=== PATIENT | male | born 1995 ===

== ENCOUNTER 2017-05-18 12:46 | Day surgery (SDC) | payer BC ==
--- NOTE | 2017-05-14 23:34 | HP ---
PREOPERATIVE HISTORY AND PHYSICAL: DATE OF SURGERY/ADMISSION: 05/18/17 [facility] DATE OF OFFICE VISIT/ENCOUNTER: 04/30/17 ATTENDING SURGEON: Rekha Naik MD * (DICTATED BY GEOFF SANTOS) PROCEDURE: Right small finger first stage tendon reconstruction. CHIEF COMPLAINT: Inability to flex right small finger after injury. HISTORY OF PRESENT ILLNESS: This is a 22-year-old male who injured his right little finger when he cut it with a knife on 12/31/16. At that time, he had some sutures placed and was told that everything would eventually be okay. However, he has not ever been able to bend his finger since the injury. He denies any numbness or tingling. He has been able to continue working. This is his nondominant hand. He works on the computer a lot. Occasionally, he has a shooting pain in the palm of his hand and feels a lump in the palm of his hand. After evaluation by Dr. Naik, he has consented to proceed with a right small finger first stage tendon reconstruction. PAST MEDICAL HISTORY: Unremarkable. PAST SURGICAL HISTORY: None. MEDICATIONS: None. ALLERGIES: No known drug allergies. FAMILY MEDICAL HISTORY: Noncontributory. 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 He denies tobacco use, recreational drug use, and does not drink alcohol. REVIEW OF SYSTEMS: General: Negative for fevers, chills, or night sweats. No known anesthesia problems. HEENT: Negative for headache, lightheadedness, or syncopal episodes. Integumentary: Negative for abrasions, lesions, or open wounds. Cardiothoracic: Negative for hypertension, chest pain, palpitations, or edema. Pulmonary: Negative for shortness of breath with exertion, chronic cough, and COPD. GI: Negative for nausea, vomiting, diarrhea, constipation, or GERD. : Negative for nocturia, urinary frequency, urgency, history of UTIs , or kidney problems. Musculoskeletal: Positive for current complaint, otherwise negative. Neurological: Negative for paresthesias, numbness, history of seizures, stroke, or epilepsy. Endocrine: Negative for diabetes or thyroid issues. Hematologic: Negative for easy bruising, anemia, excessive bleeding, or history of DVT. Infectious Disease: Negative for history of MRSA, hepatitis C, or HIV. PHYSICAL EXAMINATION GENERAL: A well-developed, well-nourished 22-year-old male in no acute distress. VITAL SIGNS: Height 6 feet 1 inch, weight 190 pounds, pulse rate 80. HEENT: Normocephalic and atraumatic. Pupils are equal, round, and reactive to light and accommodation. Extraocular movements are intact. NECK: Supple. No palpable lymph nodes. Throat is clear. PULMONARY: Lungs are clear to auscultation bilaterally. No wheezes, rales, or rhonchi. CARDIOVASCULAR: Regular, rate, and rhythm. S1 and S2. No murmurs, rubs, or gallops. No edema. ABDOMEN: Positive bowel sounds, soft, and nontender. NEUROLOGIC: Alert and oriented x3. Cranial nerves II through XII are intact. Sensation is intact to light touch. PERIPHERAL/VASCULAR: 2+ radial and ulnar pulses. Negative Festus test. MUSCULOSKELETAL: On exam of his right hand, he has a well-healed scar just past the PIP flexion crease of his little finger. He has no active PIP flexion and no active DIP flexion. He has intact neurovascular function. He has full passive motion. There is no swelling. IMPRESSION: Flexor tendon laceration of right little finger over 4 months ago. PLAN/RECOMMENDATIONS: The patient is scheduled to undergo a right small finger first stage tendon reconstruction with the second stage to follow. He will return to the office 10 days postop for followup and suture removal. A prescription for Verona was e-scribed to the patient's pharmacy for postoperative pain management. GEOFF SANTOS [id number]/[facility] #: [id number] MATTIE
[~2017-05-18 12:46] MED LIST: Buffered Lidocaine 0.9% SYRIN* 5 ML/SYR SYRINGE INTRADERM ONE; Ibuprofen TAB* 400 MG ONE; Ibuprofen TAB* 400 MG PO ONE; Sodium Citrate/Citric Acid* 15 ML UDC ONE; Sodium Citrate/Citric Acid* 15 ML UDC PO ONE
[2017-05-18] MEDS ORDERED: ceFAZolin 2 GM PREMIX (*) 2 GM/50 ML BAG IVPB ONE (12:55)
[2017-05-18] MEDS ORDERED: Lidocaine 1% INJ* 10 MG/ML 30 ML SDV ONE (14:17)
[2017-05-18] MEDS ORDERED: Lidocaine 0.5%* 50 ML SDV ONE (15:06)
[2017-05-18] MEDS ORDERED: fentaNYL* 50 MCG/ML 2 ML VIAL (100 MCG VIAL) ONE (15:32)
[2017-05-18] MEDS ORDERED: Midazolam* 1 MG/ML 2 ML VIAL (2 MG) ONE (15:37)
[2017-05-18] MEDS ORDERED: Propofol* 10 MG/ML 20 ML BTL IV PUSH ONE (15:50)
[2017-05-18] MEDS ORDERED: fentaNYL* 50 MCG/ML 2 ML VIAL (100 MCG VIAL) IV PRN (16:09)
[2017-05-18 17:18] VITALS: BP 129/75
[2017-05-18] MEDS ORDERED: HYDROcodone/ACETAMIN 5-325 MG* 1 TAB ONE (17:21)
--- NOTE | 2017-05-19 02:00 | OP ---
CC: Dr. Naik OPERATIVE REPORT: DATE OF OPERATION: 05/18/17 DATE OF : 89 SURGEON: Rekha Naik MD APPLE PACKING HEADER: GEOFF Olson ANESTHESIA: IV regional. PRE-OP DIAGNOSIS: Flexor tendon laceration of the right little finger, chronic. POST-OP DIAGNOSIS: Flexor tendon laceration of the right little finger, chronic. OPERATIVE PROCEDURE: First-stage tendon reconstruction with a padmini kayla, right small finger. INDICATIONS: Anuel is a 22-year-old male who injured his right little finger. He cut it with a knife . He had sutures placed, but since the injury has been unable to bend the DIP joint of his right lit tle finger. He has a chronic laceration of right little finger FDP. He presents for 2-stage tendon reconstruction. ESTIMATED BLOOD LOSS: Zero. TOURNIQUET TIME: An hour and 15 minutes. DESCRIPTION OF PROCEDURE: The patient was brought to the operating room, was given IV regional anest hetic with a tourniquet around his right upper arm. The skin of his right upper extremity was preppe d and draped in the usual sterile fashion. John incisions were made along the length of the right l ittle finger volar surface down to the mid aspect of the palm. The flexor tendon was indeed lacerate d. The distal stump was carefully dissected out from all of the surrounding scar tissue and the pull eys were all preserved. The FDP tendon was found in the mid aspect of the palm and was debrided with a surrounding tenosynovitis. A 3-mm silastic kayla was threaded under all of the pulleys and through the flexor tendon sheath to the mid aspect of the palm. It was secured with a 4-0 Prolene grasping s uture to the distal stump of the tendon and then side- to-side suture to the proximal stump of the te ndon. The wound was irrigated and skin edges reapproximated with 4-0 nylon suture. The wound was dr essed with Xerofnoe, 4x4, Kirsten, and Tom. The patient tolerated the procedure well and was phill t to the recovery room in good condition. The plan is to bring the patient back to the operating pavithra in several months for second stage of the tendon reconstruction. [id number]/[facility] #: [id number]
== END 2017-05-18 17:39 | disposition home or self-care (01) ==
LOC: OREAST 12:46
PROVIDERS: ATTEND Orthopaedic Surgery
DX: S66.126A Laceration of flexor muscle, fascia and tendon of right little finger at wrist and hand level, initial encounter (principal); W26.0XXA Contact with knife, initial encounter; Y92.9 Unspecified place or not applicable
CPT/HCPCS: A9270-GY; J0690; J2250; J2704; J3010

== ENCOUNTER 2017-09-25 09:38 | Day surgery (SDC) | payer BC ==
--- NOTE | 2017-09-17 09:27 | HP ---
CC: Rekha Naik MD PREOPERATIVE HISTORY AND PHYSICAL: DATE OF OPERATION: 09/25/17 ATTENDING SURGEON: Rekha Naik MD. PROCEDURE: Second stage flexor tendon reconstruction of right small finger. CHIEF COMPLAINT: Inability to flex the right small finger after an injury. HISTORY OF PRESENT ILLNESS: Anuel is a 22-year-old male who injured his right little finger when he cut it with a knife on 12/31/17, the skin was sutured at the time, but it was not realized that he had a flexor tendon injury. He saw me in April of last year and was advised it was too late to repair the tendon and that he would require two-stage tendon reconstruction. He had the first stage reconstruction on 05/18/17, he has done very well with his passive range of motion and scar management and presents now for the second stage of his tendon reconstruction. PAST MEDICAL HISTORY: Unremarkable. PAST SURGICAL HISTORY: First stage tendon reconstruction of the right small finger. MEDICATIONS: None. ALLERGIES: None. FAMILY MEDICAL HISTORY: Noncontributory. 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 He denies tobacco use, recreational drug use and does not drink alcohol. REVIEW OF SYSTEMS: Negative for cephalic, cardiovascular, respiratory, gastrointestinal, genitourinary, other musculoskeletal, skin, neurologic, endocrine and hematologic problems. Negative for history of MRSA, hepatitis C or HIV. PHYSICAL EXAMINATION GENERAL: He is a healthy-appearing, well-developed male, in minimal distress at rest. VITAL SIGNS: He is 6 feet and 1 inch, weighs 190 pounds. His pulse is 59, blood pressure 132/76. HEENT: Exam is unremarkable. His eye movements are concentric. NECK: He has good range of motion of his neck without pain. No masses are palpated. LUNGS: Clear to auscultation. Good inspiratory effort. No wheezing. CARDIAC: Regular rate and rhythm without murmur. PERIPHERAL VASCULAR: He has palpable pulses and no peripheral edema. EXTREMITIES: He has a well healed scar on his right little finger. He has full passive motion, full extension, and intact neurovascular function. NEUROLOGIC: He is alert and oriented without focal deficits. IMPRESSION: Doing well status post first stage tendon reconstruction of the right little finger. PLAN: Plan is for second stage flexor tendon reconstruction of the right little finger. I cannot visualize or palpate palmaris longus on the right hand , but he does have one on the left hand, so presumably he has one on the right. The plan will be to use the right palmaris longus tendon if it is present, and if not, we will use the left palmaris longus tendon as the tendon graft. We will see the patient back in followup approximately 10 days postop. [id number]/[facility] #: [id number] MATTIE
[~2017-09-25 09:38] MED LIST changes: +Dexamethasone IV* 4 MG/ML 1 ML (4 MG) IV SLOW PU ONE; +Dexamethasone IV* 4 MG/ML 1 ML (4 MG) ONE; +Famotidine TAB* 20 MG ONE; +Famotidine TAB* 20 MG PO ONE; -Ibuprofen TAB* 400 MG ONE; -Ibuprofen TAB* 400 MG PO ONE; -Sodium Citrate/Citric Acid* 15 ML UDC ONE; -Sodium Citrate/Citric Acid* 15 ML UDC PO ONE
[2017-09-25] MEDS ORDERED: ceFAZolin 2 GM PREMIX (*) 2 GM/50 ML BAG IVPB ONE (09:57)
[2017-09-25] MEDS ORDERED: Buffered Lidocaine 0.9% SYRIN* 5 ML/SYR SYRINGE ONE (10:34)
[2017-09-25] MEDS ORDERED: Midazolam* 1 MG/ML 2 ML VIAL (2 MG) ONE (11:21)
[2017-09-25] MEDS ORDERED: fentaNYL* 50 MCG/ML 2 ML VIAL (100 MCG VIAL) ONE ×2 (11:21→13:38)
[2017-09-25] MEDS ORDERED: Lidocaine 1% INJ* 10 MG/ML 30 ML SDV ONE (11:42)
[2017-09-25] MEDS ORDERED: fentaNYL* 50 MCG/ML 2 ML VIAL (100 MCG VIAL) IV PRN (12:20)
[2017-09-25] MEDS ORDERED: HYDROmorphone INJ* 1 MG/ML CARPUJECT SYRINGE IV PRN (12:20)
[2017-09-25] MEDS ORDERED: Ketorolac INJ* 30 MG/ML 1 ML VIAL IV PRN (12:20)
[2017-09-25] MEDS ORDERED: Naloxone* 0.4 MG/ML 1 ML VIAL IV PRN (12:20)
[2017-09-25] MEDS ORDERED: Ondansetron ODT TAB* 4 MG PO PRN (12:20)
[2017-09-25] MEDS ORDERED: Metoclopramide IV* 5 MG/ML 2 ML VIAL ONE (13:00)
[2017-09-25] MEDS ORDERED: Propofol* 10 MG/ML 20 ML BTL IV PUSH ONE (13:00)
[2017-09-25] MEDS ORDERED: Lidocaine 2% PF * 5 ML VIAL ONE (13:00)
[2017-09-25] MEDS ORDERED: Ketorolac INJ* 30 MG/ML 1 ML VIAL ONE (14:22)
[2017-09-25] MEDS ORDERED: HYDROcodone/ACETAMIN 5-325 MG* 1 TAB ONE ×2 (14:39)
[2017-09-25 15:15] VITALS: BP 127/64
--- NOTE | 2017-09-25 22:27 | OP ---
DATE OF OPERATION: 09/25/17 - [facility] DATE OF : [birth year] SURGEON: Rekha Naik MD BASKETBALL ASSEMBLER: GEOFF Olson ANESTHESIA: General. PRE-OP DIAGNOSIS: Status post first-stage flexor tendon reconstruction of the right small finger. POST-OP DIAGNOSIS: Status post first-stage flexor tendon reconstruction of the right small finger. OPERATIVE PROCEDURE: Second-stage reconstruction of the right small finger flexor tendon. Attempted harvest of left palmaris longus tendon. ESTIMATED BLOOD LOSS: Zero. TOURNIQUET TIME: Tourniquet time on the right was 98 minutes. Tourniquet time on the left was 20 minutes. DESCRIPTION OF PROCEDURE: The patient was brought to the operating room, given a general anesthetic, and placed in a supine position on the operating table with a tourniquet around both upper arms. The patient did not have a right palmaris longus tendon graft, so we have planned to harvest the left palmaris longus. The skin of both of his upper extremities was prepped and draped in the usual sterile fashion. The right upper extremity was exsanguinated and the tourniquet elevated to 250 mmHg. A distal incision was made in the old scar. We dissected down to the flexor tendon sheath and at the distal end of the Presley kayla, the attachment was intact. There was no remaining flexor digitorum profundus tendon. We then made an incision in the palm of the hand, at the center of the palm to access the proximal connection to the FDP tendon stump. We then moved to the left hand. The hand and forearm were exsanguinated and tourniquet elevated to 250 mmHg. A small transverse incision was made at the wrist crease and a second one a little bit more proximal to gain access to the distal aspect of the palmaris longus tendon. We attempted to use a tendon stripper, but were able to obtain only a very thin and a tendon graft that was too short. Therefore, the wounds were irrigated and the skin edges reapproximated with 4-0 nylon suture, dressed with Xeroform, 4x4, Webril, and an LEIGH wrap. We then decided to use the FDS tendon to the small finger as the tendon graft. The proximal incision was extended from the mid palm across the wrist crease and we were able to harvest the FDS tendon from the small finger at the musculotendinous junction that was then transected distally at the MP flexion crease. This was an adequate length tendon graft. It was secured to the silastic Presley kayla and drawn through the entire flexor tendon sheath to the distal aspect. I then made a small incision down to the cortical bone of the distal phalanx and roughed up the bone there. The tendon was then sutured with two grasping sutures of 4-0 Prolene and 2 Oral needles were driven through the distal phalanx and out top of the fingernail. The sutures were drawn through the bone and secured over the top of a plastic button on top of the fingernail. The proximal connection was then made to the stump of the FDP with a Pulvertaft to weave a 4-0 Prolene suture. The tendon was appropriately tensioned, so that it sat on the normal cascade of the hand and with range of motion of the finger, there was no gapping of the tendon repair sites. The wound was irrigated and the skin edges were reapproximated with 4-0 nylon suture. The wound was dressed with Xeroform, 4x4, Webril, and a dorsal extension blocking splint. The patient tolerated the procedure well and was brought to the recovery room in good condition. [id number]/[facility] #: [id number] MTDRena
== END 2017-09-25 15:07 | disposition home or self-care (01) ==
LOC: OREAST 09:38
PROVIDERS: ATTEND Orthopaedic Surgery
DX: S66.126D Laceration of flexor muscle, fascia and tendon of right little finger at wrist and hand level, subsequent encounter (principal); W26.0XXD Contact with knife, subsequent encounter; Y92.9 Unspecified place or not applicable
CPT/HCPCS: A9270-GY; J0690; J1100; J1885; J2250; J2704; J2765; J3010

== ENCOUNTER 2018-03-08 08:34 | Day surgery (SDC) | payer BC ==
[~2018-03-08 08:34] MED LIST changes: -Dexamethasone IV* 4 MG/ML 1 ML (4 MG) ONE; +Famotidine IV* 10 MG/ML 2 ML (20 mg) IV ONE; -Famotidine TAB* 20 MG ONE; -Famotidine TAB* 20 MG PO ONE
[2018-03-08] MEDS ORDERED: Dexamethasone IV* 4 MG/ML 1 ML (4 MG) ONE (08:39)
[2018-03-08] MEDS ORDERED: Midazolam* 1 MG/ML 2 ML VIAL (2 MG) ONE (09:32)
[2018-03-08] MEDS ORDERED: fentaNYL* 50 MCG/ML 2 ML VIAL (100 MCG VIAL) ONE (09:32)
[2018-03-08] MEDS ORDERED: Lidocaine 1% INJ* 10 MG/ML 30 ML SDV ONE (10:20)
[2018-03-08] MEDS ORDERED: Propofol* 10 MG/ML 20 ML BTL IV PUSH ONE ×2 (10:55)
[2018-03-08] MEDS ORDERED: Naloxone* 0.4 MG/ML 1 ML VIAL IV PRN (11:12)
[2018-03-08 11:39] VITALS: BP 113/40
--- NOTE | 2018-03-09 02:34 | OP ---
DATE OF OPERATION: 03/08/18 [facility] DATE OF : 89 SURGEON: Rekha Naik MD CANAL SUPERINTENDENT: GEOFF Wynn ANESTHESIA: Local MAC. PRE-OP DIAGNOSIS: Status post 2-stage flexor tendon reconstruction with adhesions. POST-OP DIAGNOSIS: Status post 2-stage flexor tendon reconstruction with adhesions. OPERATIVE PROCEDURE: Tenolysis, right small finger. INDICATIONS FOR PROCEDURE: Anuel is a 22-year-old male who suffered a laceration of his right little finger flexor tendon. This went on unrecognized for several weeks. He then was treated with a 2-stage tendon reconstruction and has had very good passive motion, but limited active motion presumably from adhesions. He presents for tenolysis. ESTIMATED BLOOD LOSS: Zero. TOURNIQUET TIME: About 45 minutes. DESCRIPTION OF PROCEDURE: The patient was brought to the operating room, was given a sedation anesthetic and a local infiltration of total 20 cc of 1% plain lidocaine in the palm of his right hand. The skin of his right hand and forearm was prepped and draped in the usual sterile fashion. The hand and forearm were exsanguinated and the tourniquet elevated to 250 mmHg. The previous scar was incised and carefully dissected down to the flexor tendon taking care to not to injure the digital neurovascular bundles. There were adhesions just distal to the A1 moe and these were completely released. There were adhesions again also at the suture site in the carpal tunnel and these too were released. The tendon still was a little too long, so we shortened some to let the finger lay at a better position. Again, the patient still had full passive motion and active motion by pulling on the tendon gape much improved flexion. The wound was irrigated and the skin edges were reapproximated with 4-0 nylon suture. The wound was dressed with Xeroform, 4x4 , Webril, and an Shane wrap. The patient tolerated the procedure well and was brought to the recovery room in good condition. [id number]/[facility] #: [id number] MATTIE
== END 2018-03-08 11:57 | disposition home or self-care (01) ==
LOC: OREAST 08:34
PROVIDERS: ATTEND Orthopaedic Surgery
DX: S66.126D Laceration of flexor muscle, fascia and tendon of right little finger at wrist and hand level, subsequent encounter (principal); M25.641 Stiffness of right hand, not elsewhere classified; W45.8XXD Other foreign body or object entering through skin, subsequent encounter; Y92.9 Unspecified place or not applicable
CPT/HCPCS: J1100; J2250; J2704; J3010